=== PATIENT | female | born 1985 | race Caucasian/White ===

== ENCOUNTER 2018-07-31 08:54 | Inpatient (IN) | payer BC, OTHER ==
[2018-07-31 09:09] VITALS: BMI 43.4
[2018-07-31] MEDS ORDERED: ceFAZolin IV 2 gm in Dextrose 2 GM/50 ML BAG IVPB ONE (09:09)
[2018-07-31] MEDS ORDERED: Lactated Ringer's 1,000 ML IV ONE (09:09)
[2018-07-31] MEDS ORDERED: OXYTOCIN/0.9 % NS 20 UNIT/1,000 ML BAG IV SCH ×2 (09:15→14:41)
[2018-07-31 10:19] LABS: BASO # 0.1 K/uL (0.0-0.2); BASO % 0.8 % (0.0-2.0); EOS # 0.1 K/uL (0.0-0.7); EOS % 0.8 % (0.0-4.0); HEMOGLOBIN 9.6 g/dL (12.0-16.0); LYMPH # 1.8 K/uL (1.0-4.3); LYMPH % 25.3 % (20.0-40.0); MEAN CELL VOLUME 81.2 fl (81.0-99.0); MEAN CORPUSCULAR HEMOGLOBIN 26.7 pg (27.0-31.0); MEAN CORPUSCULAR HGB CONC 32.8 g/dL (33.0-37.0); MEAN PLATELET VOLUME 11.2 fl (7.2-11.7); MONO # 0.4 K/uL (0.0-0.8); MONO % 6.3 % (0.0-10.0); NEUT # 4.7 K/uL (1.8-7.0); NEUT % 66.8 % (50.0-75.0); RBC 3.61 Mil/uL (3.80-5.20); RED CELL DISTRIBUTION WIDTH 14.4 % (11.5-14.5)
[2018-07-31] MEDS ORDERED: Phenylephrine 10 mg/ml Inj ONE (10:22)
[2018-07-31] MEDS ORDERED: Morphine 1 mg/ml preservative-free Inj(Duramorph) ONE (10:22)
[2018-07-31] MEDS ORDERED: ePHEDrine 50 mg/ml Inj ONE (10:22)
[2018-07-31] MEDS ORDERED: DiphenhydrAMINE 50 mg/ml Inj IVP PRN ×2 (11:23→14:41)
[2018-08-01] MEDS: Oxycodone/Acetaminophen 5/325 mg Tab PO PRN ×3 (08:19→19:49)
[2018-08-01 08:26] LABS: BASO % 0.2 % (0.0-2.0); EOS % 0.4 % (0.0-4.0); HEMOGLOBIN 8.6 g/dL (12.0-16.0); LYMPH # 1.4 K/uL (1.0-4.3); LYMPH % 14.6 % (20.0-40.0); MEAN CELL VOLUME 80.2 fl (81.0-99.0); MEAN CORPUSCULAR HGB CONC 33.6 g/dL (33.0-37.0); MEAN PLATELET VOLUME 10.6 fl (7.2-11.7); MONO # 0.4 K/uL (0.0-0.8); MONO % 4.7 % (0.0-10.0); NEUT # 7.6 K/uL (1.8-7.0); NEUT % 80.1 % (50.0-75.0); RBC 3.2 Mil/uL (3.80-5.20); RED CELL DISTRIBUTION WIDTH 14.6 % (11.5-14.5); WHITE BLOOD COUNT 9.4 K/uL (4.8-10.8)
[2018-08-02] MEDS: Oxycodone/Acetaminophen 5/325 mg Tab PO PRN ×3 (00:31→11:56)
--- NOTE | 2018-08-02 09:16 | OBPPN ---
Datetime: 08/01/2018 09:13 PP Pain Prov: Within normal limits PP Nausea Prov: Denies PP Flatus Prov: Yes PP Breasts Prov: Normal PP Heart Prov: Normal PP Lungs Prov: Normal PP Abdomen/Uterus Prov: Normal PP Lochia Prov: Normal PP Vulva/Perineum Prov: Normal PP CVA Tenderness Prov: Normal PP Extremities Prov: Normal PP Comments Phys Exam Prov: Abdomen soft, nontender, nondistended Uterus firm, below umbilicus Incision clean, dry, intact No deep calf tenderness bilaterally PP Impression Prov: Normal progression PP Plan Prov: Continue present management PP Progress Note Prov: Patient day #1 status post repeat and BTL, patient recovering well Postoperative CBC Advanced to regular diet Patient out of bed and ambulating Palomares catheter, for recheck Pain control IP PP Procedures: None Vital Signs Provider PP: Reviewed; Within Normal Limits
--- NOTE | 2018-08-02 11:10 | OBPPN ---
Datetime: 08/02/2018 11:08 PP Pain Prov: Within normal limits PP Nausea Prov: Denies PP Flatus Prov: Yes PP Breasts Prov: Normal PP Heart Prov: Normal PP Lungs Prov: Normal PP Abdomen/Uterus Prov: Normal PP Lochia Prov: Normal PP Vulva/Perineum Prov: Normal PP CVA Tenderness Prov: Normal PP Extremities Prov: Normal PP Comments Phys Exam Prov: Fundus firm under umbilicus Incision clean/dry/intact PP Impression Prov: Normal progression PP Plan Prov: Continue present management PP Progress Note Prov: Patient denies CP, no SOB, no N/V, tolerating PO diet, ambulating/voiding wel l, mild lochia, abdominal pain tolerable with meds, +flatus, no BM A/P POD #2 1. continue post op orders 2. Percocet/Motrin prn pain 3. Encourage ambulation/ IP PP Procedures: None Vital Signs Provider PP: Reviewed; Within Normal Limits
--- NOTE | 2018-08-03 08:21 | OBPPN ---
Datetime: 08/03/2018 08:18 PP Pain Prov: Within normal limits PP Nausea Prov: Denies PP Flatus Prov: No PP BM Prov: Yes PP Abdomen/Uterus Prov: Normal PP Lochia Prov: Normal PP C/S Incision Prov: Normal PP Progress Prov: Not Applicable PP Comments Phys Exam Prov: Incision intact w/ steri strips PP Impression Prov: Normal progression PP Plan Prov: Discharge PP Progress Note Prov: POD 3 s/p repeat c/s w/ BTL, doing well, bottle feeding Rx's Slow fe, motrin and percocet given Discharge home today Vital Signs Provider PP: Reviewed
--- NOTE | 2018-08-03 08:24 | OBDCSUM ---
Datetime: 08/03/2018 08:21 Discharged to, Provider: Home Follow up at, Provider: [facility] Disch Instr Activity: Normal activity; May Shower Disch Instr Diet: Regular Discharge Instructions, Provider: Routine instructions given Discharge Diagnosis, Provider: Term Delivered Discharge Time: 08/03/2018 08:22 Follow up in weeks, Provider: 1 week Disch Activity Restrictions: No exercising; No lifting; Minimize walking; No sexual activity; Nothin g in vagina - [place], tampons, douche Contraception after Delivery: Tubal Ligation
--- NOTE | 2018-08-03 08:49 | OP ---
PROCEDURE DATE: 07/31/18 PREOPERATIVE DIAGNOSES: Intrauterine at 39 weeks, history of previous section x3. POSTOPERATIVE DIAGNOSES: Intrauterine at 39 weeks, history of previous section x3. OPERATION PERFORMED: Repeat low-flap transverse section via Pfannenstiel skin incision with bilateral tubal ligation. SURGEON: Mishel Bonner MD LAYOUT TECHNICIAN: Dr. Kimber Mcrae. ESTIMATED BLOOD LOSS: 800 mL. URINE OUTPUT: Palomares catheter put out approximately 500 mL of clear urine. The patient received 1 L of D5 LR intraoperatively. COMPLICATIONS: There were no complications. OPERATIVE FINDINGS: Baby boy vertex presentation, Apgars 9 and 9, weighing 3830 gm. Debbi uterus, tubes, and ovaries were identified. DESCRIPTION OF PROCEDURE: After informed consent was obtained, the patient was taken to the operating room where she was given spinal anesthesia. She was then prepped and draped in a normal sterile fashion with a leftward tilt. A Pfannenstiel skin incision was then made with the scalpel and carried down to the underlying layer of fascia. The fascia was nicked in the midline. The fascial incision was then extended laterally with a curved Rivas scissors. The superior aspect of the fascial incision was then grasped with Hay clamps, elevated up, and the rectus muscles were dissected off using both sharp and blunt dissection. Attention was then turned to the inferior aspect of the fascial incision, which in a similar fashion was grasped with Hay clamps, elevated up, and the rectus muscles were dissected off using both sharp and blunt dissection. The rectus muscles were then in the midline. The peritoneum identified and entered sharply with Metzenbaum scissors. The peritoneal incision was then extended superiorly and inferiorly with good visualization of the bladder. The bladder blade was inserted. The vesicouterine peritoneum was identified and entered sharply with a Metzenbaum scissors. The incision was then extended laterally. The bladder flap was created digitally. The uterine incision was then made with a scalpel and extended laterally with the bandage scissors. The membranes were then popped and the was then delivered atraumatically. The nose and mouth were suctioned with DeLee suction trap. The cord was clamped and cut. The infant was handed off to awaiting pediatricians. The placenta was removed manually. The uterus was exteriorized and cleared of all clots and debris. The uterine incision was repaired with 0 Vicryl in a running locked fashion. Second layer of the same suture was used to obtain excellent hemostasis. Attention was then turned to the fallopian tubes. They were grabbed with Susanne and suture ligated. A knuckle of tube was created and then was suture ligated. The knuckle was then excised with the Metzenbaum scissors. The stumps were cauterized. The similar procedure was performed on the left. The uterus was returned to the abdomen. The gutters were then cleared of all clots and debris. The abdomen was then copiously irrigated. The irrigant was removed with the suction device. The tubes and incisions were noted to be hemostatic. The muscle was then reapproximated with 0 Vicryl in a running fashion. The fascia was closed with 0 Vicryl in a running fashion. The skin was closed with 3-0 on a Shimon needle. All sponge, lap, needle, and instrument counts were correct x2 and the patient was taken to the recovery room in awake and stable condition. Mishel Bonner MD
[2018-08-03 20:28] VITALS: BP 121/80; PULSE 71; RESP 20; TEMP 98.5; O2SAT 99
== END 2018-08-03 15:45 | disposition home or self-care (01) | DRG 766 ==
LOC: H.EROB2 08:54 → H.L&D 09:10 → H.OB/GYN 14:57
PROVIDERS: ADMIT Obstetrics & Gynecology Gynecology; ATTEND Obstetrics & Gynecology Gynecology
PROC: 10D00Z1 Extraction of Products of Conception, Low, Open Approach (ICD-10-PCS; principal; 2018-07-31)
PROC: 0UB70ZZ Excision of Bilateral Fallopian Tubes, Open Approach (ICD-10-PCS; 2018-07-31)
PROC: 4A1HXCZ Monitoring of Products of Conception, Cardiac Rate, External Approach (ICD-10-PCS; 2018-07-31)
DX: O34.211 Maternal care for low transverse scar from previous cesarean delivery (principal); Z37.0 Single live birth; N85.8 Other specified noninflammatory disorders of uterus; Z30.2 Encounter for sterilization; Z3A.39 39 weeks gestation of pregnancy

== ENCOUNTER 2018-12-09 21:51 | Emergency (ER) | payer OTHER ==
[2018-12-09 21:51] VITALS: BMI 43.4
[2018-12-09 22:02] VITALS: PULSE 87; O2SAT 99
[2018-12-09 22:58] LABS: BASO # 0.1 K/uL (0.0-0.2); BASO % 1.5 % (0.0-2.0); EOS # 0.2 K/uL (0.0-0.7); EOS % 2.5 % (0.0-4.0); HEMOGLOBIN 10.9 g/dL (12.0-16.0); LYMPH # 2.5 K/uL (1.0-4.3); LYMPH % 38.8 % (20.0-40.0); MEAN CELL VOLUME 80.5 fl (81.0-99.0); MEAN CORPUSCULAR HEMOGLOBIN 26.2 pg (27.0-31.0); MEAN CORPUSCULAR HGB CONC 32.6 g/dL (33.0-37.0); MEAN PLATELET VOLUME 9.9 fl (7.2-11.7); MONO # 0.5 K/uL (0.0-0.8); MONO % 7.6 % (0.0-10.0); NEUT # 3.2 K/uL (1.8-7.0); NEUT % 49.6 % (50.0-75.0); RBC 4.14 Mil/uL (3.80-5.20); RED CELL DISTRIBUTION WIDTH 15.5 % (11.5-14.5); WHITE BLOOD COUNT 6.5 K/uL (4.8-10.8)
--- NOTE | 2018-12-09 23:04 | ED PDOC ---
HPI: Female Pain Time Seen by Provider: 12/09/18 22:05 Chief Complaint (Nursing): Female Genitourinary Chief Complaint (Provider): vaginal bleeding History Per: Patient History/Exam Limitations: no limitations Onset/Duration Of Symptoms: Days Current Symptoms Are (Timing): Still Present Additional Complaint(s): Pam Whitfield is a 33 year old female, with no significant past medical history, who presents to the emergency department complaining of vaginal bleeding. Patient states she had a on 07/31 and had her tubes "cut." At that time she bleed for x7 weeks and states she had her first normal menstrual cycle on 09/29 which lasted for x5 days. She had her 2nd menstrual cycle on 11/03 through the . However, patient states she started bleeding again on 11/16 continuously until today but the past x3 days the bleeding has been heavier. Patient states she used 6 pads today and noticed bright red blood mixed with large clots. Patient reports being told she was anemic but is not currently taking iron. Patient also reports some pelvic pain that radiates to the back but denies any complaints of dizziness or lightheadedness. No further medical comp laints. PMD: None provided. Past Medical History Reviewed: Historical Data, Nursing Documentation, Vital Signs Vital Signs: Last Vital Signs Temp 97.3 F L 12/09/18 21:59 Pulse 87 12/09/18 21:59 Resp 16 12/09/18 21:59 BP 137/85 12/09/18 21:59 Pulse Ox 99 12/09/18 21:59 - Medical History PMH: Anemia Denies: Depression, Diabetes, HTN - Surgical History Surgical History: Other surgeries: cervical spine stenosis - Family History Family History: States: Unknown Family Hx - Social History Current smoker - smoking cessation education provided: No Alcohol: Social Drugs: Denies - Home Medications Home Medications: Ambulatory Orders Medication Instructions Recorded Acetaminophen/Oxycodone Hydr 1 tab PO Q6H PRN #15 tab 09/20/14 [Percocet 325 mg-5 mg] Cyclobenzaprine HCl [Flexeril] 10 mg PO BID PRN #12 tab 09/20/14 Ibuprofen [Motrin Tab] 600 mg PO Q8H PRN #20 tab 09/20/14 Oseltamivir Cap [Tamiflu] 75 mg PO BID 5 Days cap 12/03/14 Naproxen [Naprosyn] 500 mg PO BID PRN #20 tablet 05/17/16 Ondansetron [Zofran] 4 mg PO Q8H #9 tab 05/17/16 levoFLOXacin [Levaquin] 500 mg PO DAILY #12 tab 05/17/16 Ferrous Sulfate [Slow Fe] 142 mg PO DAILY 60 Days #60 08/03/18 tablet.er Ibuprofen [Motrin Tab] 600 mg PO Q6 PRN #20 tab 08/03/18 - Allergies Allergies/Adverse Reactions: Allergies Allergy/AdvReac Type Severity Reaction Status Date / Time No Known Allergies Allergy Verified 05/17/16 12:34 Review of Systems ROS Statement: Except As Marked, All Systems Reviewed And Found Negative Cardiovascular: Negative for: Light Headedness Genitourinary Female: Positive for: Vaginal Bleeding, Pelvic Pain (radiates to back ) Neurological: Negative for: Dizziness Physical Exam - Reviewed Nursing Documentation Reviewed: Yes Vital Signs Reviewed: Yes - Physical Exam Appears: Positive for: No Acute Distress (comfortable) Head Exam: Positive for: ATRAUMATIC, NORMAL INSPECTION, NORMOCEPHALIC Skin: Positive for: Normal Color, Warm, Dry Eye Exam: Positive for: Normal appearance, EOMI, PERRL Neck: Positive for: Normal, Painless ROM, Supple Cardiovascular/Chest: Positive for: Regular Rate, Rhythm. Negative for: Murmur Respiratory: Positive for: Normal Breath Sounds. Negative for: Respiratory Distress Gastrointestinal/Abdominal: Positive for: Normal Exam, Soft. Negative for: Tenderness, Guarding, Rebound Pelvic Exam: Positive for: No Cerv. Motion Tender, Blood (in vaginal canal. 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 Negative for: Tender Adnexa, Tender Uterus Back: Positive for: Normal Inspection. Negative for: L CVA Tenderness, R CVA Tenderness, Vertebral Tenderness Extremity: Positive for: Normal ROM (upper and lower extremities). Negative for: Deformity, Swelling Neurologic/Psych: Positive for: Alert, Oriented - Laboratory Results Result Diagrams: 12/09/18 22:54 12/09/18 22:54 - ECG O2 Sat by Pulse Oximetry: 99 (RA) Pulse Ox Interpretation: Normal Medical Decision Making Medical Decision Making: Time: 22:05 A/P: 33 y/o female presenting with vaginal bleeding. Patient has normal vital signs and is well appearing. Differential includes dysfunctional uterine bleeding vs fibroids. Initial Plan: --Type and screen --BMP --Beta-HCG,quantitative --CBC w/ differential --Urinalysis --Transvaginal US --Reevaluation 115AM Ultrasound of the pelvis, transvaginal. Indication: Vaginal bleeding. Technique: Real-time ultrasound images were obtained. Findings: Anteverted uterus measuring 8.8x6.1x5.3 cm. Endometrium is diffusely thickened measuring 18.6 mm. No free fluid in the pelvic cul-de-sac. No evidence of uterine mass lesion. Nabothian cysts of the uterine cervix. The right ovary measures 6.4x4.9x3.9 cm. 4.8 cm right ovarian cyst. The left ovary measures 3.2x2.1x2.4 cm. 2 cm left ovarian cyst. No evidence of ovarian torsion. Impression: Bilateral ovarian cysts without evidence of ovarian torsion. Electronically signed on Dec 10, 2018 1:12:22 AM EST by: Rima Moore M.D., Certified by ABR, MSK, Neuroradiology Spoke with patient's OPERATOR COATING FURNACE Dr. Bonner who recommends no acute intervention, states that she can followup tomorrow in the office Explained results to patient and advised her to followup with Dr. Bonner tomorrow Patient states she has not bled much since being in ER Well appearing with stable vitals upon discharge Scribe Attestation: Documented by Jack Hernandez, acting as a scribe for Magdiel Carcamo MD Provider Scribe Attestation: All medical record entries made by the Scribe were at my direction and perso praveen dictated by me. I have reviewed the chart and agree that the record accurately reflects my personal performance of the history, physical exam, medical decision making, and the department course for this patient. I have also personally directed, reviewed, and agree with the discharge instructions and disposition. Disposition - Clinical Impression Clinical Impression: Dysfunctional uterine bleeding - Patient ED Disposition Is Patient to be Admitted: No Discussed With : Mishel Bonner Doctor Will See Patient In The: Office Counseled Patient/Family Regarding: Studies Performed, Diagnosis, Need For Followup - Disposition Referrals: Mishel Bonner MD [Staff Provider] - Disposition: Routine/Home Disposition Time: 01:23 Condition: GOOD Additional Instructions: As discussed, please followup with Dr. Bonner in the office tomorrow. Instructions: Heavy Periods Forms: [employer] (Hungarian)
[2018-12-09 23:07] LABS: BLOOD UREA NITROGEN 14 mg/dl (7-17); GFR NON-AFRICAN AMERICAN > 60
[2018-12-09 23:16] LABS: URINE BILIRUBIN NEGATIVE (NEGATIVE); URINE BLOOD MODERATE (NEGATIVE); URINE CLARITY SLIGHTY-CLOUDY (Clear); URINE COLOR YELLOW (YELLOW); URINE GLUCOSE (UA) NEG (NEGATIVE); URINE LEUKOCYTE ESTERASE NEG Leu/uL (Negative); URINE PROTEIN 100 mg/dL (NEGATIVE); URINE UROBILINOGEN 0.2-1.0 mg/dL (0.2-1.0)
[2018-12-10 01:54] VITALS: BP 134/77; RESP 15; TEMP 98
--- NOTE | 2018-12-10 11:25 | US ---
Date of service: 12/09/2018 HISTORY: Vaginal bleeding. Duration of symptoms: November 16-present. LMP November 16, 2018. COMPARISON: None available. TECHNIQUE: Transvaginal only. Real -time technique with 2D, duplex and color Doppler FINDINGS: UTERUS: Measures 5.3 x 6.1 x 8.8 cm. Normal in size and appearance. No fibroid or other mass lesion seen. ENDOMETRIUM: Measures 18.6 mm in diameter. Endometrial hypertrophy, mildly heterogeneous echo characteristics without focal abnormality. No evidence of endometrial polyps, fluid or other pathologic process. CERVIX: No cervical abnormality identified.Incidental finding: Nabothian cysts the largest measures less than 1 cm. RIGHT OVARY: Measures 3.9 x 4.9 x 6.5 cm. No solid mass. Normal flow. Simple cyst 4.9 x 3.9 x 6.5 cm. LEFT OVARY: Measures 2.2 x 2.5 x 3.2 cm. No solid mass. Normal flow. Simple cyst 10 x 14 mm. FREE FLUID: No significant free fluid noted. OTHER FINDINGS: None. IMPRESSION: Endometrial hypertrophy without focal abnormality. Bilateral adnexal cysts, the larger on the right measures 4.6 x 4.8 cm. Concordant findings (preliminary report) provided by [facility].
== END 2018-12-10 01:53 | disposition home or self-care (01) ==
LOC: H.ER 21:51
DX: N93.9 Abnormal uterine and vaginal bleeding, unspecified (principal); D64.9 Anemia, unspecified